=== PATIENT | male | born 1975 ===

== ENCOUNTER 2022-01-11 09:20 | Emergency (ER) | payer SELFPAY ==
[2022-01-11 10:02] VITALS: BP 140/81; PULSE 80; RESP 18; TEMP 36.4; O2SAT 96; BMI 33.9
[2022-01-11] MEDS: Ketorolac Tromethamine 30 MG/ML VIAL IM (10:11)
--- NOTE | 2022-01-11 10:11 | ED.BACK ---
HPI - Back Pain/Injury General Chief Complaint: Back Pain/Injury Stated Complaint: severe back pain Time Seen by Provider: 01/11/22 09:56 Source: patient Mode of arrival: ambulatory History of Present Illness HPI Narrative: 46-year-old male with no significant past medical history presenting to the ED complaining of low back pain x2 days with radiation down RLE. Admits woke up with the pain, denies injury, trauma, heavy lifting, falls. Admits to similar symptoms in the past. Had been taking ibuprofen without relief. Reports mild numbness to low back. Denies weakness, urinary incontinence, retention, fever MD elicited complaint: back pain Onset (ago): day(s) Related Data Previous Rx's Medication Instructions Recorded acetaminophen 500 mg tablet 500 mg PO Q6H PRN fever or pain 01/11/22 (Tylenol Extra Strength) #14 tabs cyclobenzaprine 10 mg tablet 10 mg PO TID PRN muscle spasm #10 01/11/22 tabs lidocaine 5 % topical patch 1 patch topical DAILY PRN pain #30 01/11/22 (Lidoderm) ea naproxen 500 mg tablet 500 mg PO BID PRN pain 10 days #20 01/11/22 tabs Allergies Allergy/AdvReac Type Severity Reaction Status Date / Time Penicillins [PENICILLINS] Allergy Unknown SWELLING Unverified 04/11/20 18:12 AND ITCHING Review of Systems Review of Systems: Constitutional: No Fever, No Chills ENT/Mouth: No Ear Pain, No Nasal Congestion, No sore throat, No Rhinorrhea, No Swallowing Difficulty Cardiovascular: No Chest Pain, No SOB Respiratory: No Cough, No Sputum, No Wheezing Gastrointestinal: No Nausea, No Vomiting, No Diarrhea, No Constipation, No Abdominal pain Genitourinary: No Dysuria, No Urinary Frequency, No Hematuria, No Urinary Incontinence/retention, No Urgency, No Flank Pain Musculoskeletal: + joint pain, No Myalgias, No Joint Swelling Skin: No Skin Lesions, No rash Neuro: No Weakness, No Numbness, No Paresthesias Yes all other systems are reviewed and are negative Neurologic: Denies Sensory deficit (Neuro) [facility] Past Medical History Attestation statement: The following information was validated with the patient. Social History Social History Advance Directives: No Advance Directives Information Provided: No Physical Exam Vital Signs: Vital Signs: Last Vital Signs Temp 97.6 F 01/11/22 10:02 Pulse 80 01/11/22 10:02 Resp 18 01/11/22 10:02 BP 140/81 H 01/11/22 10:02 Pulse Ox 96 01/11/22 10:02 O2 Del Method 01/11/22 10:02 BMI result Body Mass Index 33.9 Const: General: cooperative, healthy appearing and no acute distress Orientation/consciousness: patient oriented x3 Limitations: no limitations HEENT: Head: Yes normal to inspection and Yes atraumatic Ears: hearing grossly normal bilaterally General nose exam: Normal external nose present Face and sinus: Yes normal facial exam Eyes: General: appearance normal, both eyes and all related structures EOM: EOMs intact bilaterally Neck: Neck: Yes normal visual inspection, Yes no lymphadenopathy and Yes no meningeal signs Resp: Effort & Inspection: normal respiratory effort and no respiratory distress Cardio: Rate: regular rate Heart sounds: S1 normal heart sound present and S2 normal heart sound present GI: Inspection: Yes normal to inspection Palpation (GI): Soft to palpation and nontender : General: Yes no CVA tenderness Back/Spine/Pelvis: Other: No midline thoracic/lumbar spinous tenderness/step-off or deformity. + bilateral lumbar paraspinal and MSK tenderness to palpation. Bilateral buttock tenderness to palpation. Back: no CVA tenderness Skin: Rashes: no rashes Wounds: no wounds Neuro: Other: Strength intact throughout. No saddle anesthesia. Sensation intact to light touch. Neurovascular intact distally General: patient oriented x3, gait normal, tone normal, moves all extremities, no meningeal signs and no focal motor deficits Gait exam (Neuro): Normal gait present Motor exam (neuro): 5/5 motor strength present throughout Sensory Exam: No Sensory deficit (Neuro) Extrem: General: Yes normal to inspection MDM - Back Pain/Injury MDM Narrative Medical decision making narrative: 46-year-old male with no significant past medical history presenting to the ED complaining of low back pain x2 days. On exam vital signs stable, NAD/nontoxic appearing, physical exam above. No midline spinous tenderness throughout. No red flag symptoms, ambulating with steady gait. Concern for MSK pain/strain/muscle spasming and sciatica. Unlikely cauda equina, cord compression, or epidural abscess Plan: Symptomatic treatment Differential Diagnosis Differential diagnosis: Likely lumbar radiculopathy, sciatica and strain of lumbar region Medical Records Attestation: I reviewed the patient's medical records. Lab Data Attestation: I reviewed the patient's lab results. Discharge Plan Discharge Clinical Impression: Lumbar radiculopathy Patient Disposition: Home, Self-Care Instructions: Acute Low Back Pain (ED) Additional Instructions: Your pain is likely musculoskeletal Flexeril is a muscle relaxer, take at night as it makes you drowsy, do not drive, drink alcohol, or operate machinery while taking it Naproxen as an anti-inflammatory / pain medication, take with food Lidoderm patches are numbing patches, apply to painful area In addition take Tylenol at home If symptoms persist or worsen, pain becomes unbearable, you developed urinary retention or incontinence, or weakness return to the ED Prescriptions: New acetaminophen [Tylenol Extra Strength] 500 mg tablet 500 mg PO Q6H PRN (Reason: fever or pain) Qty: 14 0RF lidocaine [Lidoderm] 5 % adhesive patch,medicated 1 patch topical DAILY MDD remove after 12 hours PRN (Reason: pain) Qty: 30 0RF Rx Instructions: leave on most painful area for up to 12 hrs naproxen 500 mg tablet 500 mg PO BID PRN (Reason: pain) 10 Days Qty: 20 0RF cyclobenzaprine 10 mg tablet 10 mg PO TID PRN (Reason: muscle spasm) Qty: 10 0RF Referrals: Physician,None [Primary Care Provider] -
[2022-01-11] MEDS: Acetaminophen 325 MG TABLET 650 MG PO (10:12)
[2022-01-11] MEDS: Cyclobenzaprine HCl 10 MG TABLET PO (10:13)
== END 2022-01-11 10:51 | disposition home or self-care (01) ==
PROVIDERS: Emergency Provider Emergency Medicine Emergency Medical Services
DX: M54.16 Radiculopathy, lumbar region (principal); M54.50 Low back pain, unspecified; Z79.899 Other long term (current) drug therapy
CPT/HCPCS: 96372; 99283; 99284; J1885

== ENCOUNTER 2024-01-31 23:19 | Emergency (ER) | payer MEDICAID, SELFPAY ==
--- NOTE | 2024-01-31 | ECG_ITS ---
Test Reason : chest pain Blood Pressure : / mmHG Vent. Rate : 068 BPM Atrial Rate : 068 BPM P-R Int : 164 ms QRS Dur : 090 ms QT Int : 408 ms P-R-T Axes : 043 -05 -03 degrees QTc Int : 433 ms Normal sinus rhythm Normal ECG When compared to the previous EKG of No significant changes seen Referred By: Generic ED Physician Electronically Signed By:Cameron Miles
--- NOTE | ~2024-01-31 | CT_ITS ---
EXAMINATION: CT ABDOMEN AND PELVIS WITHOUT CONTRAST CLINICAL INFORMATION: Upper abdominal pain COMPARISON: None available. TECHNIQUE: Multidetector volumetric imaging was performed from the superior aspect of the liver through the pubic symphysis. Sagittal and coronal reformatted images were obtained on the technologist's workstation. This CT examination was performed using dose optimization techniques as appropriate, variously including the following: *Automated exposure control *Adjustment of mA and/or kV according to patient size (this includes techniques or standardized protocols for targeted exams where dose is matched to indication/reason for exam; i.e. extremities or head) *Use of iterative reconstruction technique DLP: 895 mGy-cm FINDINGS: OWNER: Nonspecific bowel pattern. LUNG BASES: Minor right base atelectasis. Nonenlarged heart. No pericardial effusion. LIVER, GALLBLADDER, AND BILIARY TREE: Enlarged heterogeneous liver with regions of low density. No focal hepatic lesion on noncontrast study. No biliary ductal dilatation is present. The gallbladder contains wall calcifications and/or calcified gallstones. Gallbladder is under distended with no wall thickening or obvious pericholecystic inflammatory changes. PANCREAS: Mildly heterogeneous, subcentimeter hypodensity questioned in the pancreatic head, 3:36 SPLEEN: Unremarkable. ADRENAL GLANDS: Unremarkable. KIDNEYS AND URETERS: The kidneys are normal in size, shape, and attenuation. No hydronephrosis, hydroureter, or calculi seen. Subcentimeter hyperdensity identified in the left upper pole, 7:61, possibly hemorrhagic cyst. No perinephric stranding. BLADDER: Unremarkable. GASTROINTESTINAL TRACT: Under distended stomach. Nonobstructive bowel pattern. Mild to moderate fecal retention. ABDOMINAL WALL: No significant hernia is appreciated. LYMPH NODES: No pathologic lymphadenopathy. Nonspecific inguinal lymph nodes. VASCULAR: Unremarkable. PELVIC VISCERA: Unremarkable. Phleboliths. OSSEOUS STRUCTURES: L5-S1 disc disease. CT/CT abdomen pelvis wo IV con IMPRESSION: Enlarged, heterogeneous liver, likely hepatic steatosis. Cholelithiasis. Subcentimeter pancreatic head lesion not excluded. Consider follow-up imaging with CT or MRI pancreatic protocol. Mild to moderate fecal retention. Fleischner guidelines were followed.
[2024-01-31 23:27] VITALS: BP 148/83; PULSE 72; RESP 22; TEMP 37; O2SAT 100; BMI 36.8
--- NOTE | 2024-01-31 23:51 | MHC.EDTECH ---
Patient ekg taken and was read by provider ,blood drawn and s4ent to lab .
[2024-01-31 23:52] LABS: MANUAL DIFF FLAG NO
[2024-01-31 23:53] LABS: Basophils Absolute Auto 0.1 X10*3/uL (0.0-0.2); Basophils Percent Auto 0.6 % (0-2); Eosinophils Absolute Auto 0.2 X10*3/uL (0.0-0.4); Eosinophils Percent Auto 1.9 % (0-4); Hematocrit 40.2 % (42.0-52.0); Hemoglobin 14.4 g/dl (14.0-18.0); Imm Gran Abs Auto 0.01 X10*3/uL (0.00-0.03); Imm Gran Pct Auto 0.1 % (0.0-0.4); Lymphocytes Absolute Auto 2.7 X10*3/uL (1.2-4.9); Lymphocytes Percent Auto 31.6 % (20-40); Mean Corpuscular HGB Conc 35.8 g/dl (31.0-36.0); Mean Corpuscular Hemoglobin 29.8 pg (27.0-33.0); Mean Corpuscular Volume 83.1 fL (80.0-98.0); Mean Platelet Volume 8.7 fL (9.4-12.4); Monocytes Absolute Auto 0.7 X10*3/uL (0.1-1.2); Monocytes Percent Auto 7.6 % (2-11); Neutrophils Percent Auto 58.2 % (45-73); Platelet Count 336 X10*3/uL (160-400); Red Blood Count 4.84 X10*6/uL (4.60-5.80); Red Cell Distribution Width 12.9 % (11.0-16.0); White Blood Count 8.6 X10*3/uL (4.8-10.8)
[2024-02-01 00:09] LABS: Alanine Aminotransferase 66 U/L (0-40); Alkaline Phosphatase 81 U/L (39-117); Anion Gap 16 (12-20); Aspartate Amino Transferase 27 U/L (5-37); Bilirubin Direct 0.1 mg/dL (0.0-0.5); Bilirubin Total 0.3 mg/dL (0.0-1.0); Blood Urea Nitrogen 14 mg/dL (9-16); Calcium 9.6 mg/dL (8.4-10.2); Carbon Dioxide 21 mmol/L (22-29); Chloride 107 mmol/L (96-108); Creatinine Clr Calc Pharmacy 127.5; Estimated Glomerular Filt Rate > 60; Glucose Random 131 mg/dL (60-115); Lipase 12 U/L (8-78); Potassium 3.8 mmol/L (3.3-5.1); Sodium 140 mmol/L (135-145); Total Protein 7.2 g/dL (6.5-8.0)
[2024-02-01 00:18] LABS: Troponin-I High Sensitivity < 2.7 ng/L (<3.5-35.0)
[2024-02-01 03:03] LABS: Troponin-I High Sensitivity < 2.7 ng/L (<3.5-35.0)
--- NOTE | 2024-02-01 04:08 | ED.ABDPAIN ---
HPI - Abdominal Pain General Chief Complaint: Abdominal Pain Stated Complaint: abd pain Time Seen by Provider: 02/01/24 02:59 Source: patient Mode of arrival: ambulatory Limitations: no limitations History of Present Illness ED Provider: claudia VAZQUEZ narrative: Patient with no known history of gallstones or gastritis been having epigastric pain off and on for last 3 - 4 months got worse since last night no nausea no vomiting no diarrhea pain is sharp in character radiating to the mid sternum Related Data Previous Rx's ?Medication ?Instructions ?Recorded acetaminophen 500 mg tablet 500 mg PO Q6H PRN fever or pain 01/11/22 (Tylenol Extra Strength) #14 tabs cyclobenzaprine 10 mg tablet 10 mg PO TID PRN muscle spasm #10 01/11/22 tabs lidocaine 5 % topical patch 1 patch topical DAILY PRN pain #30 01/11/22 (Lidoderm) ea naproxen 500 mg tablet 500 mg PO BID PRN pain 10 days #20 01/11/22 tabs Allergies Allergy/AdvReac Type Severity Reaction Status Date / Time Penicillins [PENICILLINS] Allergy Unknown SWELLING Verified 02/01/24 04:33 AND ITCHING Review of Systems Review of Systems Yes all other systems are reviewed and are negative [facility] Social History Social History Smoked in Last 30 Days: No Use of substances other than those prescribed or required for medical reasons: No Advance Directives: No Advance Directives Information Provided: Yes Do you have a plan to hurt others: No Plan Physical Exam ED Vital Signs: Vital Signs - 24 hr 01/31/24 23:27 02/01/24 05:13 02/01/24 06:41 Temperature 98.6 F 98.0 F 97.9 F Pulse Rate 72 75 77 Respiratory Rate 22 H 15 16 Blood Pressure 148/83 H 153/81 H 144/80 H Pulse Oximetry 100 95 96 Oxygen Delivery Method Room Air Room Air Room Air BMI result Body Mass Index 36.8 Appearance: Alert. Oriented X3. No acute distress. Eyes: No pallor or icterus ENT: Pharynx normal. Oral Mucosa moist Neck: Normal inspection. Neck supple. CVS: Normal heart rate and rhythm. Pulses normal. Respiratory: No respiratory distress. Equal air entry bilateral, no wheezing/rales/rhonchi Abdomen: Soft and tender epigastric area and right upper quadrant with guarding no rebound tenderness Bowel sounds are present, no mass palpable, no CVA tenderness Skin: Skin warm and dry. Normal skin color. Normal skin turgor. Extremities: No lower extremity edema. No calf tenderness Neuro: Oriented X 3. Medical Decision Making Lab Data 01/31/24 23:48 01/31/24 23:48 Labs: Lab Results 01/31/24 02/01/24 Range/Units 23:48 02:35 WBC 8.6 (4.8-10.8) X10*3/uL RBC 4.84 (4.60-5.80) X10*6/uL Hgb 14.4 (14.0-18.0) g/dl Hct 40.2 L (42.0-52.0) % MCV 83.1 (80.0-98.0) fL MCH 29.8 (27.0-33.0) pg MCHC 35.8 (31.0-36.0) g/dl RDW 12.9 (11.0-16.0) % Plt Count 336 (160-400) X10*3/uL MPV 8.7 L (9.4-12.4) fL Immature Gran % (Auto) 0.1 (0.0-0.4) % Neut % (Auto) 58.2 (45-73) % Lymph % (Auto) 31.6 (20-40) % [place] % (Auto) 7.6 (2-11) % Eos % (Auto) 1.9 (0-4) % Baso % (Auto) 0.6 (0-2) % Lymph # (Auto) 2.7 (1.2-4.9) X10*3/uL [place] # (Auto) 0.7 (0.1-1.2) X10*3/uL Eos # (Auto) 0.2 (0.0-0.4) X10*3/uL Baso # (Auto) 0.1 (0.0-0.2) X10*3/uL Abs Immat Gran (auto) 0.01 (0.00-0.03) X10*3/uL Absolute Neuts (auto) 5.0 (2.0-8.3) x10*3/uL Absolute Nucleated RBC 0.000 (0.0-0.012) X10*3/uL Nucleated RBC % (auto) 0.0 (0.0-0.2) /100WBC Sodium 140 (135-145) mmol/L Potassium 3.8 (3.3-5.1) mmol/L Chloride 107 (96-108) mmol/L Carbon Dioxide 21 L (22-29) mmol/L Anion Gap 16 (12-20) BUN 14 (9-16) mg/dL Creatinine 0.97 (0.5-1.4) mg/dL Estim Creat Clear Calc 127.5 Estimated GFR > 60 Random Glucose 131 H (60-115) mg/dL Calcium 9.6 (8.4-10.2) mg/dL Total Bilirubin 0.3 (0.0-1.0) mg/dL Direct Bilirubin 0.1 (0.0-0.5) mg/dL AST 27 (5-37) U/L ALT 66 H (0-40) U/L Alkaline Phosphatase 81 (39-117) U/L Troponin I High Sens < 2.7 < 2.7 (<3.5-35.0) ng/L Total Protein 7.2 (6.5-8.0) g/dL Albumin 4.0 (3.5-5.0) g/dL Lipase 12 (8-78) U/L Medications Administered Discontinued Medications Generic Name Dose Route Start Last Admin Trade Name Freq PRN Reason Stop Dose Admin Al Hydroxide/Mg Hydroxide 30 ml 02/01/24 04:14 02/01/24 04:34 Magnesium Hydrox/Alum Hydrox 30 Ml Oral.Susp PO 02/01/24 04:15 30 ml ONCE ONE Administration Famotidine 20 mg 02/01/24 04:14 02/01/24 04:33 Famotidine/Pf 20 Mg/2 Ml Vial IVPUSH 02/01/24 04:15 20 mg ONCE ONE Administration Sodium Chloride 1,000 mls @ 999 mls/hr 02/01/24 04:14 02/01/24 04:33 Ns IV 02/01/24 05:14 999 mls/hr .Q1H1M ONE Administration Discharge Plan Discharge Clinical Impression: Abdominal pain Patient Disposition: Still a Patient Prescriptions: No Action acetaminophen [Tylenol Extra Strength] 500 mg tablet 500 mg PO Q6H PRN (Reason: fever or pain) Qty: 14 0RF lidocaine [Lidoderm] 5 % adhesive patch,medicated 1 patch topical DAILY MDD remove after 12 hours PRN (Reason: pain) Qty: 30 0RF Rx Instructions: leave on most painful area for up to 12 hrs naproxen 500 mg tablet 500 mg PO BID PRN (Reason: pain) 10 Days Qty: 20 0RF cyclobenzaprine 10 mg tablet 10 mg PO TID PRN (Reason: muscle spasm) Qty: 10 0RF Print Language: Syriac
[2024-02-01] MEDS: Famotidine/PF 20 MG/2 ML VIAL IVPUSH (04:33)
[2024-02-01] MEDS: 0.9 % Sodium Chloride 1,000 ML 999 ML IV (04:33)
[2024-02-01] MEDS: Magnesium Hydrox/Alum Hydrox 30 ML ORAL.SUSP PO (04:34)
--- NOTE | 2024-02-01 05:07 | PC.NURSE ---
this rn assumed care of pt, pt a&ox4, respirations even and unlabored. pt reporting onset up mid epigastric burning and pain. pt reports he has not experienced any nausea, vomiting or diarrhea. 20G placed in left ac, pt medicated per sep.
[2024-02-01 05:13] VITALS: BP 153/81; PULSE 75; RESP 15; TEMP 36.7; O2SAT 95
[2024-02-01 06:41] VITALS: BP 144/80; PULSE 77; RESP 16; TEMP 36.6; O2SAT 96
[2024-02-01 09:02] VITALS: BP 148/88; PULSE 73; RESP 18; TEMP 36.6; O2SAT 96
--- NOTE | 2024-02-01 09:25 | PC.NURSE ---
Report taken from Antonia GARCIA assumed care of pt at this time. Pt resting on stretcher skin pwd respirations even unlabored. NAD. Awaiting results and MD reeval, aware of plan of care.
--- NOTE | 2024-02-01 10:42 | PC.NURSE ---
Pt continues to rest comfortably, NAD. CT results received, awaiting MD reeval.
[2024-02-01 11:38] VITALS: BP 143/87; PULSE 73; RESP 18; TEMP 36.7; O2SAT 97
== END 2024-02-01 11:39 | disposition home or self-care (01) ==
PROVIDERS: Emergency Provider Internal Medicine
DX: R07.9 Chest pain, unspecified (principal); R10.13 Epigastric pain
CPT/HCPCS: 36415; 74176; 80048; 80076; 83690; 84484; 85025; 93005; 96361; 96374; 99284; 99285

== ENCOUNTER → 2024-01-31 23:34 | Outpatient (BNV) | payer MEDICAID, SELFPAY | PROVIDERS: Emergency Provider Internal Medicine; Visit Provider Internal Medicine Cardiovascular Disease | DX: R07.9 Chest pain, unspecified (principal) | CPT/HCPCS: 93010 ==

== ENCOUNTER 2024-02-16 15:00 | Outpatient (AMB) | payer OTHER, MEDICAID, SELFPAY ==
--- NOTE | 2024-02-16 15:00 | A.OFFVIS_ITS ---
Vital Signs 02/16/24 15:05 Height 6 ft Weight 268 lb BMI 36.3 Intake Visit Reasons: Gallbladder Intake Note: This patient [place] [facility] [place] colic. Patient c/o; reports no nausea or vomiting, reports constipation, reports bloating. 02/01/2024: Abd/pelvis CT [employer] Required: No Accompanied by: Spouse Allergies Penicillins [PENICILLINS] Allergy (Unknown, Verified 02/16/24 15:08) SWELLING AND ITCHING Medication List - Last Reconciled 02/16/24 by Raleigh Suresh MD acetaminophen (Tylenol Extra Strength) 500 mg PO Q6H PRN cyclobenzaprine 10 mg PO TID PRN lidocaine 5% (Lidoderm) 1 patch topical DAILY PRN MDD remove after 12 hours naproxen 500 mg PO BID PRN 10 days pantoprazole (Protonix) 40 mg PO DAILY HPI HPI Gallbladder: Details: 48-year-old male referred for gallstones. He went to the ER last 02/01/2024 for an episode of epigastric pain. State that may be this also was a little bit on the right upper quadrant He had a CAT scan showing gallstones and was referred to me. He says that he may have had another similar episode about 4 months ago. His CAT scan at that time showed what may be a subcentimeter mass in the pancreatic head. An MRI was recommended by the radiologist He says he has had no further episodes of epigastric pain. He says he was given Prilosec which he says seemed to be working. [facility] [place] Medical History (Updated 02/16/24 @ 15:16 by Raleigh Suresh MD) Gallstones History of retained foreign body fully removed (~1989) Pancreatic mass Family History Other Family history unknown Review of Systems Const Denies chills and Denies fever(s) Card Denies chest pain, Denies dyspnea and Denies dyspnea on exertion Resp Denies cough, Denies dyspnea and Denies dyspnea on exertion GI Denies hematochezia and Denies change in bowel habits Denies hematuria and Denies difficulty urinating Musc Denies back pain and Denies limited range of motion Neuro Denies focal weakness and Denies convulsions Psych Denies depression and Denies mood swings Physical Exam Vital Signs: BMI result Body Mass Index 36.3 Const General: comfortable and no acute distress Orientation/consciousness: patient oriented x3 Neck Neck: Yes no lymphadenopathy Resp Auscultation: clear to auscultation bilaterally Cardio Rhythm: regular rhythm GI Palpation (GI): Soft to palpation, nontender and no guarding Neuro General: patient oriented x3 Assessment & Plan Assessment & Plan (1) Gallstones: Code(s): K80.20 - Calculus of gallbladder without cholecystitis without obstruction Category: Medical Plan: He went to the ER for epigastric pain 02/01/2024 and was noted to have gallstones on CT scan. The impression then was he may have had a biliary colic. I therefore explained to him the option of proceeding with cholecystectomy. I discussed the technique of laparoscopic cholecystectomy. I reviewed the risks including but not limited to bleeding, infections, possible conversion to open, injury to other organs including the liver, the GI tract in the bile duct, as well as the benefits and alternatives He says that at this time he feels that his episode was mild and this does not happen often. He would like to hold off on cholecystectomy for now. He says that he would like to observe this himself and says he will call the office or come back if he wants to proceed. He also has a subcentimeter nodule in the pancreatic head so I am going to order for an MRI as recommended by the radiologist. (2) Pancreatic mass: Code(s): K86.89 - Other specified diseases of pancreas Category: Medical Plan: There was a question of a subcentimeter nodule on CT scan in the pancreatic head. I am going to order for an MRCP as recommended. I will see him in the office to review this. Orders: Orders MR MRCP Today K86.89 - Other specified diseases of pancreas Coding Level of Care Code New Pt Level 3 (21448) Diagnoses Gallstones K80.20 Pancreatic mass K86.89
[2024-02-16 15:05] VITALS: BMI 36.3
== END 2024-02-16 15:35 | disposition home or self-care (01) ==
PROVIDERS: PCP Internal Medicine; Visit Provider Surgery
DX: K80.20 Calculus of gallbladder without cholecystitis without obstruction (principal); K86.89 Other specified diseases of pancreas
CPT/HCPCS: 99203

== ENCOUNTER → 2024-02-16 15:00 | Outpatient (BNVA) | payer OTHER, SELFPAY | PROVIDERS: PCP Internal Medicine; Visit Provider Surgery | DX: K80.20 Calculus of gallbladder without cholecystitis without obstruction (principal); K86.89 Other specified diseases of pancreas | CPT/HCPCS: 99202 ==

== ENCOUNTER 2024-02-21 04:45 | Inpatient (IN) | payer OTHER, SELFPAY ==
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
--- NOTE | ~2024-02-21 | US_ITS ---
EXAMINATION: US ABDOMEN LIMITED CLINICAL INFORMATION: Right upper quadrant pain. COMPARISON: CT abdomen/pelvis 02/01/2024 TECHNIQUE: Limited imaging of the right upper quadrant abdominal viscera. FINDINGS: GALLBLADDER: The gallbladder is physiologically distended with stones and sludge. Gallbladder wall thickening up to 4 mm. No pericholecystic fluid. Positive sonographic Ryan sign. COMMON BILE DUCT: Normal in caliber measuring 0.5 cm in diameter. FREE FLUID: None. US/US abdomen limited IMPRESSION: Cholelithiasis. Borderline gallbladder wall thickening. Positive sonographic Ryan's sign. Findings may represent acute cholecystitis. Advise clinical correlation.
--- NOTE | ~2024-02-21 | MR_ITS ---
EXAMINATION: MR ABDOMEN WITHOUT CONTRAST CLINICAL INFORMATION: Right upper quadrant pain. COMPARISON: CT abdomen/pelvis 02/01/2024 TECHNIQUE: MR abdomen is performed without gadolinium contrast. Heavily T2 weighted MRCP sequences were also obtained. FINDINGS: LUNG BASES: No pleural or pericardial effusion. LIVER, GALLBLADDER, AND BILIARY TREE: The liver is enlarged and measures 20.8 cm and sagittal dimension. Hepatic steatosis. No focal hepatic lesion.. The common duct measures 5 cm at the jesu hepatis. No intrahepatic biliary ductal dilatation. The cystic duct is of normal caliber. No intraductal filling defects. There is gallbladder distention and wall thickening with gallstones. PANCREAS: Normal contour. No ductal dilatation. No peripancreatic stranding. SPLEEN: Not enlarged. ADRENAL GLANDS: No adrenal mass. KIDNEYS AND URETERS: The kidneys are normal in size and shape. No hydronephrosis. No perinephric stranding. GASTROINTESTINAL TRACT: No bowel obstruction. No ascites or fluid collection. VASCULAR: Normal caliber abdominal aorta. MR/MR MRCP IMPRESSION: No discrete pancreatic lesion seen. Evaluation limited by the lack of intravenous contrast. Cholelithiasis. Gallbladder wall thickening and distention. This may represent acute cholecystitis. Hepatomegaly and hepatic steatosis.
[2024-02-21 04:49] VITALS: BP 182/98; PULSE 77; RESP 22; TEMP 36.6; O2SAT 96; BMI 37.3
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
[2024-02-21] MEDS: Ketorolac Tromethamine 15 MG/ML VIAL IVPUSH (05:03)
[2024-02-21] MEDS: ondansetron HCL 4 MG/2 ML VIAL IVPUSH ×2 (05:03→16:43)
[2024-02-21] MEDS: Morphine Sulfate 4 MG/ML CARTRIDGE IVPUSH ×2 (05:04→05:27)
[2024-02-21 05:12] LABS: Basophils Absolute Auto 0.1 X10*3/uL (0.0-0.2); Basophils Percent Auto 0.7 % (0-2); Eosinophils Absolute Auto 0.2 X10*3/uL (0.0-0.4); Eosinophils Percent Auto 2.4 % (0-4); Hematocrit 39.9 % (42.0-52.0); Hemoglobin 13.9 g/dl (14.0-18.0); Imm Gran Abs Auto 0.02 X10*3/uL (0.00-0.03); Imm Gran Pct Auto 0.3 % (0.0-0.4); Lymphocytes Absolute Auto 2.5 X10*3/uL (1.2-4.9); Lymphocytes Percent Auto 37.4 % (20-40); MANUAL DIFF FLAG NO; Mean Corpuscular HGB Conc 34.8 g/dl (31.0-36.0); Mean Corpuscular Hemoglobin 29.2 pg (27.0-33.0); Mean Corpuscular Volume 83.8 fL (80.0-98.0); Mean Platelet Volume 8.7 fL (9.4-12.4); Monocytes Absolute Auto 0.7 X10*3/uL (0.1-1.2); Monocytes Percent Auto 10.2 % (2-11); Neutrophils Absolute Auto 3.3 x10*3/uL (2.0-8.3); Platelet Count 356 X10*3/uL (160-400); Red Blood Count 4.76 X10*6/uL (4.60-5.80); Red Cell Distribution Width 12.9 % (11.0-16.0); White Blood Count 6.8 X10*3/uL (4.8-10.8)
[2024-02-21 05:18] LABS: INTERNATIONAL NORM RATIO 0.9 (0.9-1.1); Prothrombin Time 10.8 SEC (11.1-13.3)
[2024-02-21 05:21] LABS: Partial Thromboplastin Time 29.8 SEC (26.0-36.8)
[2024-02-21 05:25] LABS: Alanine Aminotransferase 49 U/L (0-40); Albumin Level 4.2 g/dL (3.5-5.0); Alkaline Phosphatase 85 U/L (39-117); Anion Gap 16 (12-20); Aspartate Amino Transferase 24 U/L (5-37); Bilirubin Total 0.3 mg/dL (0.0-1.0); Blood Urea Nitrogen 16 mg/dL (9-16); Calcium 9.8 mg/dL (8.4-10.2); Carbon Dioxide 24 mmol/L (22-29); Chloride 106 mmol/L (96-108); Creatinine Clr Calc Pharmacy 108.3; Estimated Glomerular Filt Rate > 60; Glucose Random 137 mg/dL (60-115); Lipase 18 U/L (8-78); Potassium 3.9 mmol/L (3.3-5.1); Sodium 142 mmol/L (135-145); Total Protein 7.3 g/dL (6.5-8.0)
[2024-02-21] MEDS: Lactated Ringers 1,000 ML 999 ML IV (05:27)
[2024-02-21 06:00] VITALS: BP 153/77; PULSE 65; RESP 17; TEMP 36.6; O2SAT 96
[2024-02-21] MEDS: HYDROmorphone HCl 1 MG/ML SYRINGE IVPUSH ×2 (06:01→07:49)
--- NOTE | 2024-02-21 07:03 | PC.NURSE ---
report received from previous RN, patient resting on stretcher, states he feels like the medicine just made him high but he still feels the pain, lights dimmed and patient offered blanket for comfort. patient placed back on monitoring coordinator and continuous pulse ox. waiting for US results and disposition.
--- NOTE | 2024-02-21 07:33 | PC.NURSE ---
MRI screening completed at this time, faxed to MRI department, MD Suresh at bedside at this time
--- NOTE | 2024-02-21 07:39 | PC.NURSE ---
per OK for patient to go to MRI off monitor
[2024-02-21] MEDS: Metoclopramide HCl 10 MG/2 ML VIAL IVPUSH (07:43)
[2024-02-21] MEDS: diphenhydrAMINE HCL 50 MG/ML VIAL IVPUSH (07:47)
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
--- NOTE | 2024-02-21 07:58 | PC.NURSE ---
patient medicated per SEP, portable xray completed. requesting ice chips at this time, ok per MD matamoros. patient adjusted in bed for comfort, lights dimmed, awaiting MRI at this time
--- NOTE | 2024-02-21 08:53 | PHA.MEDREC ---
Pharmacy Consult ? Medication Reconciliation Pharmacy has completed the medication reconciliation. Patient was sleeping so spoke to girlfriend Lilian at bedside. She said pt is done with the pantoprazole prescription and he's taking multivitamin daily and tylenol 500 mg as needed for pain.
--- NOTE | 2024-02-21 09:12 | PC.NURSE ---
patient at MRI at this time
[2024-02-21] MEDS: 0.9 % Sodium Chloride Flush 3 ML SYRINGE IVFLUSH (09:50)
[2024-02-21] MEDS: Pantoprazole Sodium 40 MG/10 ML VIAL IVPUSH (09:51)
[2024-02-21] MEDS: Lactated Ringers 1,000 ML 100 ML IVCONT ×2 (09:51→20:42)
--- NOTE | 2024-02-21 10:44 | PC.NURSE ---
report called to Jeanie GARCIA in overflow, patient being transported at this time
--- NOTE | 2024-02-21 13:47 | PC.NURSE ---
Per Dr. Suresh patient okay to have clear liquids until midnight tonight
--- NOTE | 2024-02-21 14:02 | PM.EVENT ---
Event Note Date of Service: 02/21/24 Event Note: Feels better Has been sleeping according to the Stable vital signs Abdomen soft and benign He wants to proceed with cholecystectomy I have put him on the schedule for tomorrow for laparoscopic cholecystectomy possible open cholecystectomy I reviewed with him the technique of this procedure as well as the risks, benefits, and alternatives His MRCP does not reveal any obvious pancreatic head mass Time Spent With Patient Time: Total time managing care of this patient today ____ minutes.
[2024-02-21] MEDS: Morphine Sulfate 4 MG/ML CARTRIDGE 3 MG IVPUSH ×2 (15:56→20:38)
--- NOTE | 2024-02-21 16:19 | PC.NURSE ---
Medicated per mar for complaints of abdominal pain, tolerating clear liquids well , at bedside
[2024-02-21 18:25] VITALS: BP 175/97; PULSE 54; RESP 16; TEMP 37.1; O2SAT 96
--- NOTE | 2024-02-21 18:29 | PC.NURSE ---
Medicated with good effect for complaints of nausea. at bedside. Patient reports pain is much improved
[2024-02-21 20:50] VITALS: BP 144/86; PULSE 59
[2024-02-21 21:36] VITALS: BP 167/88; PULSE 55; RESP 17; TEMP 36.3; O2SAT 96
[2024-02-21 22:29] LABS: Appearance Urine Clear; Color Urine Yellow; Glucose Urine UA Negative (Negative); Leukocyte Esterase Urine Trace (Negative); Nitrite Urine Negative (Negative); PH 5.5 (5.0-9.0); UMIC TRIGGER UACC YES; Urine Blood Negative (Negative); Urine Ketones Negative (Negative); Urine Protein Negative (Neg-Trace)
[2024-02-21 22:42] LABS: Bacteria Urine None Seen (None Seen); Hyaline Casts Urine 0-2 /LPF (0-2); UACC Culture Trigger YES
[2024-02-21 22:43] LABS: RBC Urine 0-2 /HPF (0-2)
[2024-02-22] VITALS (12 sets, daily range): BP systolic 145–187; BP diastolic 66–97; PULSE 50–82; RESP 11–18; TEMP 36.1–37; O2SAT 94–98
[2024-02-22] MEDS: Lactated Ringers 1,000 ML 100 ML IVCONT ×3 (06:11→23:59)
[2024-02-22 07:27] LABS: Mean Corpuscular HGB Conc 35.1 g/dl (31.0-36.0); Mean Corpuscular Hemoglobin 29.6 pg (27.0-33.0); Mean Corpuscular Volume 84.3 fL (80.0-98.0); Mean Platelet Volume 8.7 fL (9.4-12.4); Platelet Count 311 X10*3/uL (160-400); Red Blood Count 4.39 X10*6/uL (4.60-5.80); Red Cell Distribution Width 12.9 % (11.0-16.0); White Blood Count 7.8 X10*3/uL (4.8-10.8)
[2024-02-22 07:40] LABS: Alanine Aminotransferase 45 U/L (0-40); Albumin Level 3.6 g/dL (3.5-5.0); Alkaline Phosphatase 66 U/L (39-117); Anion Gap 12 (12-20); Aspartate Amino Transferase 24 U/L (5-37); Bilirubin Total 0.6 mg/dL (0.0-1.0); Blood Urea Nitrogen 11 mg/dL (9-16); Calcium 9.4 mg/dL (8.4-10.2); Carbon Dioxide 28 mmol/L (22-29); Chloride 106 mmol/L (96-108); Creatinine Clr Calc Pharmacy 125.8; Estimated Glomerular Filt Rate > 60; Glucose Random 111 mg/dL (60-115); Potassium 4.5 mmol/L (3.3-5.1); Sodium 141 mmol/L (135-145); Total Protein 6.4 g/dL (6.5-8.0)
[2024-02-22] MEDS: Acetaminophen 325 MG TABLET 650 MG PO ×2 (08:09→20:02)
[2024-02-22] MEDS: Pantoprazole Sodium 40 MG/10 ML VIAL IVPUSH (08:09)
--- NOTE | 2024-02-22 08:15 | PM.PNGS ---
Subjective Subjective Date of Service: 02/22/24 Interval history: Feels well this morning Denies significant pain No nausea or vomiting Physical Exam Vital Signs: Vital Signs: Last Vital Signs Temp 97.9 F 02/22/24 07:00 Pulse 65 02/22/24 07:00 Resp 16 02/22/24 07:00 BP 145/81 H 02/22/24 07:00 Pulse Ox 95 02/22/24 07:00 O2 Del Method Room Air 02/22/24 07:00 BMI result Body Mass Index 37.3 Const: General: comfortable and no acute distress Resp: Effort & Inspection: normal respiratory effort Cardio: Rate: regular rate GI: Palpation (GI): Soft to palpation, not firm, nontender and no guarding Objective Data Active Medications Acetaminophen (Acetaminophen 325 Mg Tablet) 650 mg PO Q6H PRN PRN Reason: Pain, Mild (Pain Scale 1-3), fever or headache Last Admin: 02/22/24 08:09 Dose: 650 mg Documented By: ROMANA Heparin Sodium (Porcine) (Heparin Sodium,Porcine 5,000 Unit/Ml Vial) 5,000 unit SUBCUT Q8H [facility] Lactated Ringer's (Lr) 1,000 mls @ 100 mls/hr IVCONT .Q10H [facility] Last Admin: 02/22/24 06:11 Dose: 100 mls/hr Documented By: BLADIMIR Metoclopramide HCl (Metoclopramide Hcl 10 Mg/2 Ml Vial) 10 mg IVPUSH Q6H PRN PRN Reason: Nausea and Vomiting Morphine Sulfate (Morphine Sulfate 4 Mg/Ml Cartridge) 3 mg IVPUSH Q3H PRN; Protocol PRN Reason: pain, severe Last Admin: 02/21/24 20:38 Dose: 3 mg Documented By: JOSUÉ Ondansetron HCl (Ondansetron Hcl 4 Mg/2 Ml Vial) 4 mg IVPUSH Q6H PRN PRN Reason: nausea Last Admin: 02/21/24 16:43 Dose: 4 mg Documented By: SAMUEL Pantoprazole Sodium (Pantoprazole Sodium 40 Mg/10 Ml Vial) 40 mg IVPUSH DAILY [facility] Last Admin: 02/22/24 08:09 Dose: 40 mg Documented By: ROMANA Sodium Chloride (0.9 % Sodium Chloride Flush 3 Ml Syringe) 3 ml IVFLUSH QSHIFT [facility] Last Admin: 02/22/24 07:10 Dose: Not Given Documented By: ROMANA Non-Admin Reason: IV Running Labs 02/22/24 07:06 02/22/24 07:06 Labs: Laboratory Results - last 24 hr 02/21/24 02/22/24 22:15 07:06 MCV 84.3 MCH 29.6 MCHC 35.1 RDW 12.9 Plt Count 311 MPV 8.7 L Absolute Nucleated RBC 0.000 Nucleated RBC % (auto) 0.0 Anion Gap 12 Estim Creat Clear Calc 125.8 Estimated GFR > 60 Random Glucose 111 Calcium 9.4 Total Bilirubin 0.6 AST 24 ALT 45 H Alkaline Phosphatase 66 Total Protein 6.4 L Albumin 3.6 Urine Color Yellow Urine Appearance Clear Urine pH 5.5 Ur Specific [place] 1.020 Urine Protein Negative Urine Glucose (UA) Negative Urine Ketones Negative Urine Blood Negative Urine Nitrite Negative Ur Leukocyte Esterase Trace H Urine RBC 0-2 Urine WBC 6-10 H Ur Squamous Epith Cells 3-5 Urine Bacteria None Seen Hyaline Casts 0-2 Blood Type O Positive Antibody Screen NEGATIVE Microbiology Microbiology Results: Microbiology 02/21/24 22:45 Urine Culture - Preliminary Urine clean catch - Clean Catch Midstream Culture too young to evaluate. Procedures Date of Service Date of Service: 02/22/24 Progress Note: A&P Assessment and plan (1) Biliary colic: Status: Acute Assessment and Plan: Has had multiple episodes He wants to proceed with cholecystectomy He understands the technique of the planned procedure as well as the risks, benefits, and alternatives LFTs within normal His was with him at bedside Time Spent With Patient Time: Total time managing care of this patient today ____ minutes. Quality Stroke Does the patient have a stroke diagnosis?: No VTE Prior VTE?: No VTE Risk Level:: Medical - moderate - high VTE Device Contraindication: N/A - Device Ordered VTE Drug Contraindication: N/A - Med Ordered
--- NOTE | 2024-02-22 11:13 | HO.ANESPROP2 ---
HPI - Anesthesia Eval Consult details Narrative: for lap. cholecystectomy PMFSH Active Problems Active Problems: All Active Problems History of exploratory laparotomy (Acute) Mass of head of pancreas (Acute) Biliary colic (Acute) Abdominal pain, acute, right upper quadrant (Acute) Gallstones (Acute) Pancreatic mass (Acute) Past Medical History Medical History (Updated 02/21/24 @ 07:20 by Edilberto Quiros MD) Gallstones History of retained foreign body fully removed (~1989) Pancreatic mass Family History Family History Other Family history unknown Family history of problems with anesthesia: No Surgical History Surgical History (Updated 02/21/24 @ 07:53 by Raleigh Suresh MD) History of exploratory laparotomy History of Problems with Anesthesia: No Social History Social History Household Members: None Housing: Apartment Do you presently have visiting nurse or other home services: No Patient Tobacco Use Status: Current everyday Tobacco user Tobacco use type: Cigarette Cigarette Packs Per Day: 1 Cigarettes Per Day: 20.0 e-Cigarette/Vaping Use: Currently Using Meds Allergies Allergy/AdvReac Type Severity Reaction Status Date / Time Penicillins [PENICILLINS] Allergy Unknown SWELLING Verified 02/21/24 04:52 AND ITCHING Active Medications: Current Medications Acetaminophen (Acetaminophen 325 Mg Tablet) 650 mg PO Q6H PRN PRN Reason: Pain, Mild (Pain Scale 1-3), fever or headache Last Admin: 02/22/24 08:09 Dose: 650 mg Heparin Sodium (Porcine) (Heparin Sodium,Porcine 5,000 Unit/Ml Vial) 5,000 unit SUBCUT Q8H ANIYA Lactated Ringer's (Lr) 1,000 mls @ 100 mls/hr IVCONT .Q10H ANIYA Last Admin: 02/22/24 06:11 Dose: 100 mls/hr Metoclopramide HCl (Metoclopramide Hcl 10 Mg/2 Ml Vial) 10 mg IVPUSH Q6H PRN PRN Reason: Nausea and Vomiting Morphine Sulfate (Morphine Sulfate 4 Mg/Ml Cartridge) 3 mg IVPUSH Q3H PRN; Protocol PRN Reason: pain, severe Last Admin: 02/21/24 20:38 Dose: 3 mg Ondansetron HCl (Ondansetron Hcl 4 Mg/2 Ml Vial) 4 mg IVPUSH Q6H PRN PRN Reason: nausea Last Admin: 02/21/24 16:43 Dose: 4 mg Pantoprazole Sodium (Pantoprazole Sodium 40 Mg/10 Ml Vial) 40 mg IVPUSH DAILY [facility] Last Admin: 02/22/24 08:09 Dose: 40 mg Sodium Chloride (0.9 % Sodium Chloride Flush 3 Ml Syringe) 3 ml IVFLUSH QSHIFT [facility] Last Admin: 02/22/24 07:10 Dose: Not Given Home Medications ?Medication ?Instructions ?Recorded ?Confirmed ?Last Taken ?Type acetaminophen 500 mg tablet 500 mg PO DAILY PRN Pain 02/21/24 02/21/24 Unknown History (Tylenol Extra Strength) multivitamin 1 tab PO DAILY 02/21/24 02/21/24 Unknown History Exam Height,Weight and Vital Signs: Height 6 ft Weight 124.738 kg Last Vital Signs Temp 98.4 F 02/22/24 09:58 Pulse 68 02/22/24 09:58 Resp 18 02/22/24 09:58 BP 165/78 H 02/22/24 09:58 Pulse Ox 98 02/22/24 09:58 O2 Del Method Room Air 02/22/24 09:58 Pertinent Lab Results Pertinent Lab Results: Laboratory Tests 02/21/24 02/21/24 02/22/24 05:08 22:15 07:06 WBC 6.8 7.8 RBC 4.76 4.39 L Hgb 13.9 L 13.0 L Hct 39.9 L 37.0 L MCV 83.8 84.3 MCH 29.2 29.6 MCHC 34.8 35.1 RDW 12.9 12.9 Plt Count 356 311 MPV 8.7 L 8.7 L Immature Gran % (Auto) 0.3 Neut % (Auto) 49.0 Lymph % (Auto) 37.4 [place] % (Auto) 10.2 Eos % (Auto) 2.4 Baso % (Auto) 0.7 Lymph # (Auto) 2.5 [place] # (Auto) 0.7 Eos # (Auto) 0.2 Baso # (Auto) 0.1 Abs Immat Gran (auto) 0.02 Absolute Neuts (auto) 3.3 Absolute Nucleated RBC 0.000 0.000 Nucleated RBC % (auto) 0.0 0.0 PT 10.8 L INR 0.9 APTT 29.8 Sodium 142 141 Potassium 3.9 4.5 Chloride 106 106 Carbon Dioxide 24 28 Anion Gap 16 12 BUN 16 11 Creatinine 1.15 0.99 Estim Creat Clear Calc 108.3 125.8 Estimated GFR > 60 > 60 Random Glucose 137 H 111 Calcium 9.8 9.4 Total Bilirubin 0.3 0.6 AST 24 24 ALT 49 H 45 H Alkaline Phosphatase 85 66 Total Protein 7.3 6.4 L Albumin 4.2 3.6 Lipase 18 Urine Color Yellow Urine Appearance Clear Urine pH 5.5 Ur Specific [place] 1.020 Urine Protein Negative Urine Glucose (UA) Negative Urine Ketones Negative Urine Blood Negative Urine Nitrite Negative Ur Leukocyte Esterase Trace H Urine RBC 0-2 Urine WBC 6-10 H Ur Squamous Epith Cells 3-5 Urine Bacteria None Seen Hyaline Casts 0-2 Blood Type O Positive Antibody Screen NEGATIVE Airway Mallampati Class: II (full neck, anticipate diff airway and diff mask airway) TM Dist: <=3cm Neck ROM: Full Loose/Missing/Broken Teeth: Yes and Upper Heart: ok Lungs: ok Assessment and Plan Assessment Anesthesia Assessment: Anesthesia Plan Discussed and Chart Reviewed Final Anesthetic Review Family History of Problems with Anesthesia: No History of Problems with Anesthesia: No NPO: Yes ASA Class: II and III Final Preanesthetic Review: No Changes in Pt Med Stat, Meds/Allgs Chart Reviewed, Consent Obtained/Reviewed and Anes Risks/Benef Reviewed Patient Risk: Intermediate Procedure Risk: Intermediate Anesthetic Plan Anesthetic Plan: GA and Agree w/ Assess. and Plan Disposition: Standard PACU
--- NOTE | 2024-02-22 12:15 | MHC.CM.PN ---
PT IS DOWN FOR SURGERY, CM WILL RE-APPROACH FOR INTAKE ASSESSMENT WHEN PT AVAILABLE.
--- NOTE | 2024-02-22 13:06 | P.OP_ITS ---
Operative Note Operative Note Date of Service: 02/22/24 Narrative: Preop diagnosis: Gallstones, with symptoms Postop diagnosis: Gallstones, with chronic cholecystitis; also with densely adherent bowel loops in the area of the umbilicus and on the inferior aspect of the liver; extensive adhesions Procedure: Laparoscopic cholecystectomy, with extra port placement on the left paraumbilical area Surgeon: Raleigh Suresh MD floral assistant: EVAN Ferreira The patient is a 48-year-old male who was admitted via the ER yesterday because of right upper quadrant and epigastric pain. He did have gallstones. He has had his ER visits as well for this same problem. In view of his severe pain was admitted and he wanted to proceed with cholecystectomy. He understood the technique of the planned procedure as well as the risks, benefits, and alternatives. He was brought to the operating room. He was placed supine under general anesthesia via endotracheal tube. The abdomen was prepped and draped in usual sterile fashion. A surgical time-out was done. The patient received Cefotan 2 g IV preoperatively I made a short supraumbilical incision using blade 15. He did have a long laparotomy incision in this area. This was carried down through the full- thickness of the skin subcutaneous fat with the fascia was incised. Since I expected adhesions, I proceeded to examine the underside of the fascia carefully prior to inserting any port site. I noticed immediately that there was note of a small bowel loop surrounding this incision in the area just above the umbilicus. I could not leave any significant clearance around this and I feel that it was too risky to try to bluntly dissect the adhesions around the area to achieve clearance for the port. I decided therefore to place my initial port in the gastric area. I made an incision in the epigastric area just below the subcostal margin. I carried this down through the full-thickness of the skin and subcutaneous fat. I incised through the fascia. Careful blunt dissection, as able to enter the peritoneal cavity. I inserted the Daniels port through this incision. We examined laparoscopically. The very densely adherent small bowel loops around the umbilicus were seen and it was impossible to carefully released this in view of the dense adhesions. I therefore needed to make a separate incision on the left paraumbilical area inserted a 5/12 mm port with laparoscopic visualization. This was just lateral to the densely adherent bowel loops. We moved the 10 mm 30 degree scope into this left sided port. With laparoscopic visualization, I proceeded to then insert 2 5 mm ports in the epigastric area below the subcostal margin along the anterior axillary line and the midclavicular line. Graspers were placed through this to working ports. The patient was placed in head up and [id number] position. The fundus of the gallbladder was seen. We are able to apply a grasper to this and this was used to retract the gallbladder cephalad. There was note of a lot of omentum adherent to the anterior wall of the gallbladder. We had to do careful blunt dissection with the [place] dissector as well as the tip of the suction teacher of the visually impaired. Carefully separate all the omentum off of the anterior wall of the gallbladder. Eventually, it appeared that we had good visualization of the anterior wall. However, there was note of bowel loops stuck to this medially. I had to carefully separate this from the rest of the gallbladder wall with blunt dissection during the tip of the excision I irrigated. We had to proceed slowly to avoid any injury to the bowel loops. Eventually was able t o completely separate this bowel loop off of the entire gallbladder. I was able to therefore apply a grasper towards the neck of the gallbladder. This was used to retract the gallbladder laterally. I proceeded to define the inferior wall of the gallbladder with blunt dissection using the [place] dissector. By doing so was able to visualize the cystic artery. This blood a little bit during the dissection so I had to apply clips onto this and this was transected between clips with Endo scissors We at this point had achieve a critical view of the hepatocystic triangle. There was note of chronic fibrotic tissue in the area of the hilum and went to do careful dissection carefully separate this from the rest of the inferior margin of the gallbladder wall. Eventually, I was as able to carefully define the planes of the neck of the gallbladder was the cystic duct. With this confirmed along with the hepatocystic triangle being defined, I applied clips on the cystic duct with 2 clips being applied distally. The cystic duct was transected between clips with Endo scissors. With traction on the gallbladder away from the liver bed I proceeded to divide through the hilum with the hook electrocautery, carefully avoiding fibrous adhesions cook to separate the gallbladder wall from the liver bed. I proceeded to define a plane of dissection between the gallbladder wall and the liver bed using a combination of blunt dissection as well as the cautery. I the gallbladder from the liver bed along this plane. There was note of fibrotic changes consistent with chronic cholecystitis. Eventually as able to completely separate the gallbladder and the liver bed and this was retrieved through an endobag through the epigastric port I reinserted all ports and insufflated. I examined the bowel loop that had been adjacent to the gallbladder earlier and this did not have any obvious injury. I used the right lateral port site examined the bowel loops underneath the umbilicus. These did not appear to have an injury either. There was no enteric fluid seen in the area I proceeded to then examined the subhepatic space. There was note of a little bit of oozing from the liver bed and I applied Surgicel to achieve hemostasis. I observed this for about 2 minutes. Once hemostasis was confirmed, I proceeded to then desufflated the port sites. Removed all ports under vision with the laparoscope I then retracted the fascia of the umbilical incision with S retractors. I was able to visualize the very adherent bowel loops underneath this and this appeared to be tacked to the any injury I therefore closed the fascia of the umbilical incision carefully with a [id number] Polysorb 0 stitch. I also closed the fascia of the epigastric port with a [id number] Polysorb 0 stitch Skin incisions were closed with Polysorb 4-0 subcuticular running sutures. All incisions were infiltrated with Marcaine 0.5% for postop analgesia Dressings were applied. The procedure was completed The patient tolerated procedure well. There were no immediate complications. Initial and final counts of sponges and instruments were correct. Estimated blood loss was about 75 cc The patient was extubated without difficulty and transferred to the recovery room with stable vital signs.
[2024-02-22] MEDS: Acetaminophen 1,000 MG/100 ML PIGGYBACK 400 MG IV (13:44)
[2024-02-22] MEDS: 0.9 % Sodium Chloride Flush 3 ML SYRINGE IVFLUSH (14:46)
--- NOTE | 2024-02-22 15:28 | MHC.CM.PN ---
CM MET WITH PT AT BEDSIDE. IRAQI SPEAKING, NO NEED FOR BUSINESS SOLUTIONS DIRECTOR. PT LIVES ALONE, INDEPENDENT AND EMPLOYED. NO HCP, DECLINES TO COMPLETE ONE AT THIS TIME. PCP JOANN DIAS, UNSURE OF PROVIDERS NAME. DP: HOME, NO SERVICES ANTICIPATED. PT HAS OWN RIDE HOME. CM WILL CONTINUE TO FOLLOW FOR ANY CHANGE TO DC PLAN/NEEDS.
--- NOTE | 2024-02-22 16:09 | PM.EVENT ---
Event Note Date of Service: 02/22/24 Event Note: seen postoo s/p lap felipa - difficult procedure due to adhesions appears comfortable seems to have adequate pain control stable VS looks well pain mgt doing well postop hope to dc home tomorrow Lilian updated Time Spent With Patient Time: Total time managing care of this patient today ____ minutes.
[2024-02-22] MEDS: Morphine Sulfate 4 MG/ML CARTRIDGE IVPUSH ×2 (17:21→21:21)
[2024-02-22] MEDS: oxyCODONE HCl Immed Release 5 MG TABLET PO (20:03)
[2024-02-22] MEDS: Heparin Sodium,Porcine 5,000 UNIT/ML VIAL 5000 UNIT SUBCUT (20:03)
--- NOTE | 2024-02-22 21:00 | PC.NURSE ---
patient unsure if he wanted to take heparin shot at HS, RN educated patient on the use and benefit of the heparin shot. patient accepted.
[2024-02-23 00:13] VITALS: BP 143/80
[2024-02-23 03:38] VITALS: BP 148/74; PULSE 77; RESP 16; TEMP 37.3; O2SAT 92
[2024-02-23] MEDS: Heparin Sodium,Porcine 5,000 UNIT/ML VIAL 5000 UNIT SUBCUT (03:48)
[2024-02-23] MEDS: Morphine Sulfate 4 MG/ML CARTRIDGE IVPUSH ×2 (03:48→12:21)
--- NOTE | 2024-02-23 07:55 | PM.PNGS ---
Subjective Subjective Date of Service: 02/23/24 Interval history: Feels well Denies significant pain Tolerating clear liquids Ambulating Says he has good pain control Physical Exam Vital Signs: Vital Signs: Last Vital Signs Temp 99.1 F 02/23/24 03:38 Pulse 77 02/23/24 03:38 Resp 16 02/23/24 03:38 BP 148/74 H 02/23/24 03:38 Pulse Ox 92 02/23/24 03:38 O2 Del Method Room Air 02/23/24 03:38 O2 Flow Rate 2 02/22/24 14:15 BMI result Body Mass Index 37.3 Const: Other: Looks well General: comfortable and no acute distress Resp: Effort & Inspection: normal respiratory effort Cardio: Rate: regular rate GI: Other: Band-Aids in place Palpation (GI): Soft to palpation, not firm and no guarding Objective Data Active Medications Acetaminophen (Acetaminophen 325 Mg Tablet) 650 mg PO Q6H PRN PRN Reason: Pain, Mild (Pain Scale 1-3), fever or headache Last Admin: 02/22/24 20:02 Dose: 650 mg Documented By: GENEVA Heparin Sodium (Porcine) (Heparin Sodium,Porcine 5,000 Unit/Ml Vial) 5,000 unit SUBCUT Q8H [facility] Last Admin: 02/23/24 03:48 Dose: 5,000 unit Documented By: GENEVA Lactated Ringer's (Lr) 1,000 mls @ 100 mls/hr IVCONT .Q10H [facility] Last Admin: 02/22/24 23:59 Dose: 100 mls/hr Documented By: GENEVA Melatonin (Melatonin 3 Mg Tablet) 6 mg PO BEDTIME PRN PRN Reason: Insomnia Metoclopramide HCl (Metoclopramide Hcl 10 Mg/2 Ml Vial) 10 mg IVPUSH Q6H PRN PRN Reason: Nausea and Vomiting Morphine Sulfate (Morphine Sulfate 4 Mg/Ml Cartridge) 4 mg IVPUSH Q4H PRN; Protocol PRN Reason: Pain, Severe (Pain Scale 7-10) Last Admin: 02/23/24 03:48 Dose: 4 mg Documented By: GENEVA Ondansetron HCl (Ondansetron Hcl 4 Mg/2 Ml Vial) 4 mg IVPUSH Q6H PRN PRN Reason: nausea Last Admin: 02/21/24 16:43 Dose: 4 mg Documented By: SAMUEL Oxycodone HCl (Oxycodone Hcl Immed Release 5 Mg Tablet) 5 mg PO Q4H PRN PRN Reason: Pain, Moderate(Pain Scale 4-6) Last Admin: 02/22/24 20:03 Dose: 5 mg Documented By: GENEVA Pantoprazole Sodium (Pantoprazole Sodium 40 Mg/10 Ml Vial) 40 mg IVPUSH DAILY [facility] Last Admin: 02/22/24 08:09 Dose: 40 mg Documented By: ROMANA Sodium Chloride (0.9 % Sodium Chloride Flush 3 Ml Syringe) 3 ml IVFLUSH QSHIFT [facility] Last Admin: 02/22/24 23:13 Dose: Not Given Documented By: GENEVA Non-Admin Reason: IV Running Labs 02/22/24 07:06 02/22/24 07:06 Labs: Laboratory Results - last 24 hr 02/22/24 07:06 Antibody Screen NEGATIVE Microbiology Microbiology Results: Microbiology 02/21/24 22:45 Urine Culture - Preliminary Urine clean catch - Clean Catch Midstream Culture too young to evaluate. Procedures Date of Service Date of Service: 02/23/24 Progress Note: A&P Assessment and plan (1) Biliary colic: Status: Acute Assessment and Plan: Status post laparoscopic cholecystectomy Looks well Advance diet Abdomen soft and benign If tolerating diet, okay to DC Discharge instructions reinforced with patient at bedside Time Spent With Patient Time: Total time managing care of this patient today ____ minutes. Quality Stroke Does the patient have a stroke diagnosis?: No VTE Prior VTE?: No VTE Risk Level:: Medical - moderate - high VTE Device Contraindication: N/A - Device Ordered VTE Drug Contraindication: N/A - Med Ordered
[2024-02-23 08:00] VITALS: BP 159/85; PULSE 75; RESP 16; TEMP 36.7; O2SAT 93
[2024-02-23] MEDS: Pantoprazole Sodium 40 MG/10 ML VIAL IVPUSH (08:25)
[2024-02-23] MEDS: oxyCODONE HCl Immed Release 5 MG TABLET PO (08:35)
[2024-02-23] MEDS: Acetaminophen 325 MG TABLET 650 MG PO (08:36)
--- NOTE | 2024-02-23 10:09 | HO.POSTANES ---
Post Anesthesia Evaluation Post Anesthesia Evaluation Date of Service: 02/22/24 Vital Signs: Vital Signs Temp Pulse Resp BP Pulse Ox O2 Del Method 02/23/24 08:00 98.0 F 75 16 159/85 H 93 Room Air 02/23/24 03:38 99.1 F 77 16 148/74 H 92 Room Air 02/23/24 00:13 143/80 H Anesthesia: General Mental Status: Awake Pain Control: Satisfactory Nausea/Vomiting: None Hydration: Adequate Anesthesia-Related Issues: No Anes. Related Issues
--- NOTE | 2024-02-23 12:09 | MHC.CM.PN ---
Patient medically cleared for dc home self care. Family at bedside to transport. RN aware.
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
== END 2024-02-23 13:05 | disposition home or self-care (01) | DRG 263 ==
LOC: HO.ED 08:38 → HO.EDOVER 10:52 → HO.S3 19:56
PROVIDERS: Admitting Provider Surgery; Emergency Provider Emergency Medicine Emergency Medical Services; Visit Provider Surgery
PROC: 0FT44ZZ Resection of Gallbladder, Percutaneous Endoscopic Approach (ICD-10-PCS; CPT 47562; principal; 2024-02-22 11:10)
DX: K80.12 Calculus of gallbladder with acute and chronic cholecystitis without obstruction (principal); F17.210 Nicotine dependence, cigarettes, uncomplicated; K82.8 Other specified diseases of gallbladder; Z71.6 Tobacco abuse counseling; Z88.0 Allergy status to penicillin; Z79.899 Other long term (current) drug therapy
CPT/HCPCS: 47562; 36415; 71045; 74181; 76705; 80053; 81001; 83690; 85025; 85027; 85610; 85730; 86850; 86900; 86901; 87086; 87147; 88304; 99221; 99285; J0131; J1170; J1200; J1644; J1885; J2270; J2405; J2470; J2704; J2765; J2795; J3010; J7120

== ENCOUNTER → 2024-02-21 08:00 | Outpatient (BNV) | payer OTHER, SELFPAY | PROVIDERS: Admitting Provider Surgery; Emergency Provider Emergency Medicine Emergency Medical Services; Visit Provider Surgery | DX: K80.10 Calculus of gallbladder with chronic cholecystitis without obstruction (principal) | CPT/HCPCS: 47562; 99024; 99222; 99499 ==

== ENCOUNTER 2024-03-08 14:32 | Outpatient (AMB) | payer OTHER, SELFPAY ==
--- NOTE | 2024-03-08 14:42 | MHC.OFFVIS ---
Intake Visit Reasons: Laparoscopic cholecystectomy Intake Note: This patient presents for post-op assessment status post Laparoscopic cholecystectomy, with extra port placement on the left paraumbilical area. Pt c/o; reports no complaints. Reverse Unit Operator Required: No Accompanied by: Other Relationship Allergies Penicillins [PENICILLINS] Allergy (Unknown, Verified 03/08/24 14:42) SWELLING AND ITCHING HPI HPI Laparoscopic cholecystectomy: Details: 48-year-old male here for postop visit. He underwent laparoscopic cholecystectomy last 02/22/2024 for acute cholecystitis. He tolerated procedure well. He was discharged on postop day 1. He did have significant adherent small bowel loops surrounding the umbilicus so we had to place 1 of the port sites away from this. He seems to be doing well. Denies any significant GI complaints. He has good oral intake. [facility] Medical History (Updated 03/08/24 @ 15:08 by Raleigh Suresh MD) Gallstones History of retained foreign body fully removed (~1989) Pancreatic mass Surgical History History of laparoscopic cholecystectomy (~02/22/24) History of exploratory laparotomy Family History Other Family history unknown Social History Household Members: None Housing: Apartment Do you presently have visiting nurse or other home services: No Patient Tobacco Use Status: Current everyday Tobacco user Tobacco use type: Cigarette Cigarette Packs Per Day: 1 Cigarettes Per Day: 20.0 e-Cigarette/Vaping Use: Currently Using service: No Review of Systems Const Denies chills and Denies fever(s) Card Denies chest pain, Denies dyspnea and Denies dyspnea on exertion Resp Denies cough, Denies dyspnea and Denies dyspnea on exertion GI Denies hematochezia and Denies change in bowel habits Denies hematuria and Denies difficulty urinating Musc Denies back pain and Denies limited range of motion Neuro Denies focal weakness and Denies convulsions Psych Denies depression and Denies mood swings Physical Exam Const General: comfortable and no acute distress Eyes Other: Anicteric GI Other: All incisions are well healed, not infected Assessment & Plan Assessment & Plan (1) Gallstones: Code(s): K80.20 - Calculus of gallbladder without cholecystitis without obstruction Category: Medical Plan Status post laparoscopic cholecystectomy. All incisions are well healed. His path report shows chronic cholecystitis. His MRI did not show any pancreatic mass . He was advised to avoid lifting 20 lb short 2 more weeks. He can follow up on a p.r.n. basis. Coding Level of Care Code Global (19116) Diagnoses Gallstones K80.20
== END 2024-03-08 15:24 | disposition home or self-care (01) ==
PROVIDERS: Visit Provider Surgery
DX: K80.20 Calculus of gallbladder without cholecystitis without obstruction (principal)
CPT/HCPCS: 99024

== ENCOUNTER → 2024-03-08 14:32 | Outpatient (BNVA) | payer OTHER, SELFPAY | PROVIDERS: Visit Provider Surgery | DX: Z48.815 Encounter for surgical aftercare following surgery on the digestive system (principal); Z90.49 Acquired absence of other specified parts of digestive tract | CPT/HCPCS: 99212 ==

== ENCOUNTER 2024-11-29 10:49 | Emergency (ER) | payer SELFPAY ==
--- NOTE | ~2024-11-29 | CT_ITS ---
EXAMINATION: CT SOFT TISSUE NECK WITH CONTRAST CLINICAL INFORMATION: Swelling/tenderness. Concerning chin abscess. COMPARISON: None available. TECHNIQUE: Following the intravenous administration of 75 mL of Omnipaque 350 intravenous contrast, helical imaging was performed in the axial plane with generation of coronal and sagittal reformatted images. This CT examination was performed using dose optimization techniques as appropriate, variously including the following: *Automated exposure control *Adjustment of mA and/or kV according to patient size (this includes techniques or standardized protocols for targeted exams where dose is matched to indication/reason for exam; i.e. extremities or head) *Use of iterative reconstruction technique DLP: 969 mGy centimeter. FINDINGS: There is skin thickening and edema pattern in the midline and right midline mandibular soft tissues without a peripheral enhancing fluid collection. There is a subtle periapical hypodensity in the right mandibular first premolar. There is periapical hypodensities in the second molars, maxillary and to a lesser extent mandible. There is a periapical hypodensity in the left first premolar of the mandible. No peripheral enhancing fluid collections in the oral cavity nor the lingual margin of the mandible. No peripheral enhancing fluid collection in the submandibular compartment.. Skull base, nasopharynx, retropharynx, hypopharynx and larynx demonstrated no gross mass or fluid collections. The machine maintenance repairer spaces demonstrated no masses or fluid collections. Salivary glands demonstrated no enhancing lesion or calcifications. Prominent, nonspecific submandibular, sublingual and suprahyoid carotid compartments. Secretions within the vallecula. Mild prominent lingual tonsils. The vessels are patent. Dominant right internal jugular vein. The thyroid gland demonstrates normal morphology without dominant nodule. No mass or fluid collections in the intraconal or extraconal compartments of the orbits. Cervical spondylosis C5-6 and to a lesser extent C4-5 and C6 levels with a reverse curvature apex at C5. No air-fluid levels in the paranasal sinuses. Tympanic cavities and mastoid cells are aerated. CT/CT soft tissue neck w IV con IMPRESSION: Edema pattern/phlegmon and has associated skin thickening soft tissues of the mandible without drainable fluid collection. Prominent likely reactive cervical lymph nodes. Probable multiple periapical abscesses, maxillary and mandibular. Electronically signed by: Tray Schwab MD 11/29/2024 01:45 PM EDT
[2024-11-29 11:24] VITALS: BP 153/99; PULSE 99; RESP 18; TEMP 36.8; O2SAT 99; BMI 36.6
--- NOTE | 2024-11-29 11:24 | ED_ITS ---
HPI - Skin/Abscess/Foreign Bdy General Chief complaint: Skin/Abscess/Foreign Body Stated complaint: ? Abscess on Chin Time Seen by Provider: 11/29/24 11:54 Source: patient Mode of arrival: ambulatory Limitations: no limitations History of Present Illness ED Provider: Jade Carroll PA-C HPI narrative: Patient is a 48 year old assigned male at with a history of a pancreatic mass presenting to the emergency department today with chin pain / swelling. Patient states that a few days ago he noticed swelling in his chin, shaved his haley, and attempted to pop the area without success. Patient states that it is draining some clear fluid. Patient denies any dizziness, lightheadedness, abdominal pain, nausea, vomiting, fever, chills, blurry vision, double vision, loss of vision, chest pain, difficulty breathing, shortness of breath, back pain, night sweats, pain with urination, increased urinary frequency, increased urinary urgency, blood in his urine or stool, syncope or a near syncopal episode, recent trauma or falls, bowel incontinence, bladder incontinence, or any other complaints at this time. Related Data Home Medications ?Medication ?Instructions ?Recorded ?Confirmed acetaminophen 500 mg tablet 500 mg PO DAILY PRN Pain 02/21/24 02/21/24 (Tylenol Extra Strength) multivitamin 1 tab PO DAILY 02/21/24 02/21/24 Previous Rx's ?Medication ?Instructions ?Recorded ibuprofen 600 mg tablet 600 mg PO Q6H PRN pain #30 tabs 02/23/24 oxycodone-acetaminophen 5 mg-325 1 tab PO Q4-6H PRN pain #25 tabs 02/23/24 mg tablet (Percocet) doxycycline hyclate 100 mg tablet 100 mg PO BID 7 days #14 tabs 11/29/24 Allergies Allergy/AdvReac Type Severity Reaction Status Date / Time Penicillins [PENICILLINS] Allergy Unknown SWELLING Verified 11/29/24 11:26 AND ITCHING Review of Systems 2 Constitutional: Constitutional: Reports no additional constitutional complaints, Denies chills, Denies fever(s) and Denies night sweats Eyes: Eyes: Reports no additional eye complaints, Denies blurry vision, Denies change in vision, Denies diplopia, Denies eye discharge, Denies loss of vision and Denies eye pain ENT: Denies dizziness Comments: chin swelling - pain Cardiovascular: Cardiovascular: Reports no additional cardiovascular complaints, Denies chest pain, Denies lightheadedness, Denies Loss of Consciousness and Denies dyspnea Respiratory: Respiratory: Reports no additional respiratory complaints and Denies dyspnea Gastrointestinal: Gastrointestinal: Reports no additional gastrointestinal complaints, Denies abdominal pain, Denies melena, Denies hematochezia, Denies change in bowel habits and Denies change in stool character Genitourinary: Genitourinary: Reports no additional male genitourinary complaints, Denies hematuria, Denies oliguria, Denies difficulty urinating, Denies dysuria, Denies urinary frequency, Denies urinary hesitancy, Denies urinary incontinence and Denies urinary urgency Musculoskeletal: Musculoskeletal: Reports no additional musculoskeletal complaints, Denies numbness and Denies tingling Neurologic: Denies dizziness, Denies loss of vision, Denies numbness and Denies tingling Psychiatric: Psychiatric: Reports no additional psychiatric complaints Endocrine: Endocrine: Reports no additional endocrine complaints Hematologic/Lymphatic: Hematologic/Lymphatic: Reports no additional hematologic/lymphatic complaints Allergic/Immunologic: Allergic/Immunologic: Reports no additional allergic/immunologic complaints [facility] Past Medical History Attestation statement: The following information was validated with the patient. Source: old records reviewed and nursing notes reviewed Medical History Gallstones History of retained foreign body fully removed (~1989) Pancreatic mass Surgical History History of laparoscopic cholecystectomy (~02/22/24) History of exploratory laparotomy Family History Family History Other Family history unknown Social History Social History Household Members: None Housing: Apartment Do you presently have visiting nurse or other home services: No Unable to assess alcohol history related to: Unknown Patient Tobacco Use Status: Current everyday Tobacco user Tobacco use type: Cigarette Cigarette Packs Per Day: 1 Cigarettes Per Day: 20.0 e-Cigarette/Vaping Use: Currently Using Use of substances other than those prescribed or required for medical reasons: Unknown Advance Directives: No Advance Directives Information Provided: Yes service: No Physical Exam 2 Vital Signs: Vital Signs: Last Vital Signs Temp 98.2 F 11/29/24 11:24 Pulse 75 11/29/24 13:44 Resp 16 11/29/24 13:44 BP 148/76 H 11/29/24 13:44 Pulse Ox 95 11/29/24 13:44 O2 Del Method Room Air 11/29/24 13:44 BMI result Body Mass Index 36.6 Const: General: cooperative, no acute distress, alert and awake Nutritional Appearance: well nourished Orientation/consciousness: patient oriented x3 HEENT: Other: Head: Yes normal to inspection and Yes atraumatic Ears: hearing grossly normal bilaterally and external ears normal General nose exam: Normal external nose present, no nasal discharge noted and no epistaxis Face and sinus: No abrasion and No laceration Mouth: Normal oral and palatal mucosa present, no drooling and no muffled voice Eyes: General: appearance normal, both eyes and all related structures P eriorbital: periorbital findings normal Eyelids: Yes eyelids normal C onjunctivae: conjunctivae normal Pupils: Equal, round and reactive pupils present EOM: EOMs intact bilaterally Neck: Neck: Yes normal visual inspection, Yes full ROM and Yes no lymphadenopathy Resp: Effort & Inspection: normal respiratory effort and able to speak in complete sentences Neuro: General: patient oriented x3, moves all extremities and CN's II-XI intact bilaterally Cranial nerves: Yes Equal, round and reactive pupils present Cognition (Neuro): normal cognition Extrem: General: Yes normal to inspection, Yes full ROM and Yes capillary refill normal Psych: Appearance: grossly normal Mental Status: mental status grossly normal Affect: normal affect Attitude: cooperative Thought process: N ormal thought process present Thought content: Normal thought content present Insight: Good insight present (Psych) Course Course Course Narrative: This is a Rapid Medical Exam performed in triage by rBenda Phillips PA-C. Full HPI, ROS and PE to be performed by primary ED provider. 48 yo M w/no sig PMHx presenting to the ED c/o painful draining abscess/infection noted to right-side of chin extending to neck. Reports painful swallowing. Denies difficulty or inability to swallow, fever. Reports watery drainage from area. Tried to self drain at home PE: + erythematous crusted over area noted to right side of chin with swelling extending to submental area. +ttp to submental region w/o fluctuance or induration, Uvula midline. No respiratory distress. Talking in complete sentences Plan: labs, CT Medications Administered Discontinued Medications Generic Name Dose Route Start Last Admin Trade Name Ethan PRN Reason Stop Dose Admin Ibuprofen 800 mg 11/29/24 11:27 11/29/24 11:31 Ibuprofen 800 Mg Tablet PO 11/29/24 11:28 800 mg ONCE ONE Administration Iohexol 100 ml 11/29/24 13:29 11/29/24 13:29 Iohexol 350 Mg/Ml 100 Ml Infus..Btl IV 11/29/24 13:30 75 ml ONCE ONE Administration Medical Decision Making Medical Decision Making MDM Narrative: Patient is a 48 year old assigned male at with a history of a pancreatic mass presenting to the emergency department today with chin pain / swelling. Patient's physical exam was as noted in the physical exam portion of this note. Patient's blood work showed a mildly elevated CRP with a normal WBC count and ESR. Patient's CT soft tissue neck showed edema pattern/phlegmon and has associated skin thickening soft tissues of the mandible without drainable fluid collection. I spoke with Dr. Ferrell the general surgeon electronics department manager who recommended having the patient follow up on an outpatient basis and covering with PO ABX. I explained my physical exam findings as well as all test results to the patient. I answered all questions asked by the patient. I stressed the importance of the patient taking his medication as directed (either prescribed or as the over the counter packaging recommends). I stressed the importance of the patient following up with his primary care provider and general surgeon. I stressed the importance of the patient returning to the emergency department immediately if his symptoms were to worsen or if he were to develop any dizziness, shortness of breath, difficulty breathing, chest pain, blurry vision, loss of vision, nausea, vomiting, abdominal pain, fever, chills, back pain, or any other complaints. Patient verbalized agreement and understanding with this treatment plan and discharge. Differential Diagnosis Differential Diagnoses: The differential diagnosis associated with the presentation includes Facial cellulitis Chin cellulitis Foliculitis Abscess Admission/Observation Consideration of admission/observation: Escalation of care including admission/observation considered Patient would have been admitted to the hospital had his work up had any findings where hospital admission was appropriate and his clinical presentation warranted hospital admission. Consult Healthcare Provider Management of the patient was discussed with: Director Auto (spoke with Dr. Ferrell as noted in the MDM Rationale portion of this note. ) Lab Data [facility] Lab Attestation statement: I reviewed the patient's lab results. My interpretation of these results are in the MDM Rationale portion of this note. 11/29/24 11:56 11/29/24 11:56 Labs: Lab Results 11/29/24 Range/Units 11:56 WBC 9.4 (4.8-10.8) X10*3/uL RBC 4.97 (4.60-5.80) X10*6/uL Hgb 14.7 (14.0-18.0) g/dl Hct 40.4 L (42.0-52.0) % MCV 81.3 (80.0-98.0) fL MCH 29.6 (27.0-33.0) pg MCHC 36.4 H (31.0-36.0) g/dl RDW 12.9 (11.0-16.0) % Plt Count 345 (160-400) X10*3/uL MPV Not Reportable Immature Gran % (Auto) 0.3 (0.0-0.4) % Neut % (Auto) 72.6 (45-73) % Lymph % (Auto) 19.4 L (20-40) % [place] % (Auto) 6.0 (2-11) % Eos % (Auto) 1.3 (0-4) % Baso % (Auto) 0.4 (0-2) % Lymph # (Auto) 1.8 (1.2-4.9) X10*3/uL [place] # (Auto) 0.6 (0.1-1.2) X10*3/uL Eos # (Auto) 0.1 (0.0-0.4) X10*3/uL Baso # (Auto) 0.0 (0.0-0.2) X10*3/uL Abs Immat Gran (auto) 0.03 (0.00-0.03) X10*3/uL Absolute Neuts (auto) 6.9 (2.0-8.3) x10*3/uL Absolute Nucleated RBC 0.000 (0.0-0.012) X10*3/uL Nucleated RBC % (auto) 0.0 (0.0-0.2) /100WBC ESR 14 (0-15) MM/HR Sodium 142 (135-145) mmol/L Potassium 4.2 (3.3-5.1) mmol/L Chloride 107 (96-108) mmol/L Carbon Dioxide 25 (22-29) mmol/L Anion Gap 14 (12-20) BUN 13 (9-16) mg/dL Creatinine 0.85 (0.5-1.4) mg/dL Estim Creat Clear Calc 145.2 Estimated GFR > 60 Random Glucose 102 (60-115) mg/dL Calcium 9.4 (8.4-10.2) mg/dL C-Reactive Protein 1.43 H (< or = 0.50) mg/dL Independent Interpretation I performed an independent interpretation of an: CT Scan Interpretation: My interpretation is in agreement with the radiologist's impression of this imaging study. L Report Number: [id number]: Total DLP = 969.00 mGy-cm EXAMINATION: CT SOFT TISSUE NECK WITH CONTRAST CLINICAL INFORMATION: Swelling/tenderness. Concerning chin abscess. COMPARISON: None available. TECHNIQUE: Following the intravenous administration of 75 mL of Omnipaque 350 intravenous contrast, helical imaging was performed in the axial plane with generation of coronal and sagittal reformatted images. This CT examination was performed using dose optimization techniques as appropriate, variously including the following: *Automated exposure control *Adjustment of mA and/or kV according to patient size (this includes techniques or standardized protocols for targeted exams where dose is matched to indication/reason for exam; i.e. extremities or head) *Use of iterative reconstruction technique DLP: 969 mGy centimeter. FINDINGS: There is skin thickening and edema pattern in the midline and right midline mandibular soft tissues without a peripheral enhancing fluid collection. There is a subtle periapical hypodensity in the right mandibular first premolar. There is periapical hypodensities in the second molars, maxillary and to a lesser extent mandible. There is a periapical hypodensity in the left first premolar of the mandible. No peripheral enhancing fluid collections in the oral cavity nor the lingual margin of the mandible. No peripheral enhancing fluid collection in the submandibular compartment. Skull base, nasopharynx, retropharynx, hypopharynx and larynx demonstrated no gross mass or fluid collections. The manager content spaces demonstrated no masses or fluid collections. Salivary glands demonstrated no enhancing lesion or calcifications. Prominent, nonspecific submandibular, sublingual and suprahyoid carotid compartments. Secretions within the vallecula. Mild prominent lingual tonsils. The vessels are patent. Dominant right internal jugular vein. The thyroid gland demonstrates normal morphology without dominant nodule. No mass or fluid collections in the intraconal or extraconal compartments of the orbits. Cervical spondylosis C5-6 and to a lesser extent C4-5 and C6 levels with a reverse curvature apex at C5. No air-fluid levels in the paranasal sinuses. Tympanic cavities and mastoid cells are aerated. CT/CT soft tissue neck w IV con IMPRESSION: Edema pattern/phlegmon and has associated skin thickening soft tissues of the mandible without drainable fluid collection. Prominent likely reactive cervical lymph nodes. Probable multiple periapical abscesses, maxillary and mandibular. Electronically signed by: Tray Schwab MD 11/29/2024 01:45 PM EDT RP Dictated By: Tray Reid MD Signed By: Electronically signed by Tray Ramsey MD 11/29/24 1345 Radiology Impression Discussion of test interpretation with radiology: I have reviewed the radiologist's reading. Prescription Management I considered prescription management with: Antibiotic (patient prescribed an antibiotic for chin cellulitis as noted in the MDM Rationale portion of this note. ) Critical Care Time Critical Care Time Critical Care Time: Yes Total Critical Care Time: 36 Attestation: I spent 36 minutes of Critical Care Time with this patient. This does not include time spent on separately reported billable procedures. Discharge Plan Discharge Clinical Impression: Cellulitis Patient Disposition: Home, Self-Care Instructions: Cellulitis (ED) Additional Instructions: Take your antibiotics as prescribed. Sleep sitting up right to avoid additional swelling. Follow up with your primary care provider and a general surgeon. Return to the emergency department immediately if your symptoms worsen or if you develop any numbness, tingling, dizziness, shortness of breath, difficulty breathing, chest pain, blurry vision, loss of vision, nausea, vomiting, abdominal pain, fever, chills, back pain, or any other complaints. [place] los antibi?ticos galo y pavan le prakash recetado. Duerma sharlene sentado para evitar m?s hinchaz?n. Seamus un seguimiento con alvarado m?dico de cabecera y un cirujano general. Acuda inmediatamente a urgencias si delphine s?ntomas empeoran o si presenta entumecimiento, hormigueo, mareos, falta de aliento, dificultad para respirar, dolor tor?cico, visi?n borrosa, p?rdida de visi?n, n?useas, v?mitos, dolor abdominal, fiebre, escalofr?os, dolor de espalda o cualquier otra molestia. Please see the information below about our Patient Portal. If you are not yet enrolled in the [facility] Patient Portal, you will receive an enrollment email invitation following your visit to any [facility] setting. You may also self-enroll in the Patient Portal by visiting our website: [email or web address] The following information is required to access the Patient Portal: - Your [facility] Medical Record Number - Your personal home email address (must match what is in your electronic medical record, Registration staff can assist with this) - Name - Date of Capabilities of the Patient Portal: - Message some providers - View upcoming appointments - Access your health summary, medical history, and visit history - View current conditions and allergies - View procedure and lab results - View your medications, including guidelines, side effects, and precautions - Complete pre-appointment questionnaires requested by your provider - Ready summary reports of your office visits and procedures To access the Patient Portal Mobile Guille, follow these directions: - Search idemama in the Guille Store or [email or web address] Store - Download the Guille - Search for [facility] - Enter your login/password Portal del paciente Si usted no esta inscrito en el portal de pacientes de [facility], recibira roxy invitacion de inscripcion despues de alvarado visita al [facility] o al [facility] via correo electronico. Tambien puede inscribirse voluntariamente en el portal de pacientes visitando nuestra pagina web: [email or web address] La siguiente informacion sera requerida para acceder al portal: - Alvarado priti de historia medica de [facility] - Alvarado direccion de correo electronico personal - Nombre - Fecha de nacimiento Capacidades: Las siguientes capacidades estan disponibles en el portal de pacientes: - Enviar mensajes a algunos doctores - Verificar proximas citas - Acceso a alvarado historial de justo, registro medico e historial de visitas - Mariya las condiciones actuales y alergias mariya procedimientos y resultados del laboratorio - Mariya delphine medicamentos, incluyendo las pautas - Efectos secundarios y precauciones - Completar o llenar formularios / cuestionarios de - Citas solicitadas por alvarado doctor - Leer los resumenes de reportes medicos de delphine visitas y procedimientos [place] acceder a la aplicacion movil: - Laura [employer] en la Gu[employer] Store o [email or web address] Store - Descargue la aplicacion - [facility] - Ingrese alvarado nombre de usuario / Contrasena Prescriptions: New doxycycline hyclate 100 mg tablet 100 mg PO BID 7 Days Qty: 14 0RF No Action multivitamin Tablet 1 tab PO DAILY acetaminophen [Tylenol Extra Strength] 500 mg tablet 500 mg PO DAILY PRN (Reason: Pain) oxycodone-acetaminophen [Percocet] 5-325 mg tablet 1 tab PO Q4-6H PRN (Reason: pain) Qty: 25 0RF Rx Instructions: Partial Fill upon patient request. ibuprofen 600 mg tablet 600 mg PO Q6H PRN (Reason: pain) Qty: 30 0RF Referrals: [facility] General Surgeons [Provider Group] (Call to establish and follow up with a general surgeon. ) [facility] Family Medicine [Provider Group] (Call to establish and follow up with a primary care provider. If you already have a primary care provider, please follow up with them.) [facility] Primary Care, Briana [Provider Group] (Call to establish and follow up with a primary care provider. If you already have a primary care provider, please follow up with them.) [facility] Primary Care, Robson [Provider Group] (Call to establish and follow up with a primary care provider. If you already have a primary care provider, please follow up with them.) [facility] Primary Care, XIMENA [Provider Group] (Call to establish and follow up with a primary care provider. If you already have a primary care provider, please follow up with them.) [facility] Primary Care, Isrela Sidhu [Provider Group] (Call to establish and follow up with a primary care provider. If you already have a primary care provider, please follow up with them.) Stand Alone Forms: Work/School Release Print Language: Bol[place]
[2024-11-29] MEDS: Ibuprofen 800 MG TABLET PO (11:31)
[2024-11-29 12:05] LABS: MANUAL DIFF FLAG NO
[2024-11-29 12:18] LABS: Anion Gap 14 (12-20); Blood Urea Nitrogen 13 mg/dL (9-16); C Reactive Protein 1.43 mg/dL (< or = 0.50); Calcium 9.4 mg/dL (8.4-10.2); Carbon Dioxide 25 mmol/L (22-29); Chloride 107 mmol/L (96-108); Creatinine Clr Calc Pharmacy 145.2; Estimated Glomerular Filt Rate > 60; Glucose Random 102 mg/dL (60-115); Potassium 4.2 mmol/L (3.3-5.1); Sodium 142 mmol/L (135-145)
[2024-11-29 12:26] LABS: Basophils Percent Auto 0.4 % (0-2); Eosinophils Absolute Auto 0.1 X10*3/uL (0.0-0.4); Eosinophils Percent Auto 1.3 % (0-4); Hematocrit 40.4 % (42.0-52.0); Hemoglobin 14.7 g/dl (14.0-18.0); Imm Gran Abs Auto 0.03 X10*3/uL (0.00-0.03); Imm Gran Pct Auto 0.3 % (0.0-0.4); Lymphocytes Absolute Auto 1.8 X10*3/uL (1.2-4.9); Lymphocytes Percent Auto 19.4 % (20-40); Mean Corpuscular HGB Conc 36.4 g/dl (31.0-36.0); Mean Corpuscular Hemoglobin 29.6 pg (27.0-33.0); Mean Corpuscular Volume 81.3 fL (80.0-98.0); Monocytes Absolute Auto 0.6 X10*3/uL (0.1-1.2); Neutrophils Absolute Auto 6.9 x10*3/uL (2.0-8.3); Neutrophils Percent Auto 72.6 % (45-73); PLT CLUMP 1; Red Blood Count 4.97 X10*6/uL (4.60-5.80); Red Cell Distribution Width 12.9 % (11.0-16.0); SCAN SMEAR FLAG 1
[2024-11-29 12:31] LABS: White Blood Count 9.4 X10*3/uL (4.8-10.8)
[2024-11-29 12:45] LABS: Platelet Count 345 X10*3/uL (160-400)
[2024-11-29 12:54] LABS: Erythrocyte Sedimentation Rate 14 MM/HR (0-15)
[2024-11-29] MEDS: iohexoL 350 MG/ML 100 ML INFUS..BTL IV (13:29)
[2024-11-29 13:44] VITALS: BP 148/76; PULSE 75; RESP 16; O2SAT 95
--- NOTE | 2024-11-29 14:58 | P.CONGS_ITS ---
History of Present Illness Consult details Consult date: 11/29/24 Narrative: 48-year-old male patient presenting for evaluation of swelling and pain located in the chin. This began several days ago and was noted below his haley. He reports shaving his haley in an attempt to pop an infection without success. Also reports swelling extending down his neck. He denies any fever or chills, shortness of breath or other associated symptoms. He did note some swelling in the left eye which he thought may have been due to environmental allergies. He presented to the emergency department due to the pain and was noted to have a normal WBC but an elevated CRP. A CT of the neck soft tissue was performed and revealed edema/phlegmon with the associated skin thickening of the soft tissues of the mandible without any drainable fluid collection noted. A prominent, likely reactive cervical lymph node was noted. Surgical consultation was requested regarding the need for possible incision and drainage. He denies any previous infections in this location. Review of Systems 2 Review of Systems: Yes all other systems are reviewed and are negative PMFSH Past Medical History Medical History Gallstones History of retained foreign body fully removed (~1989) Pancreatic mass Family History Family History Other Family history unknown Surgical History Surgical History History of laparoscopic cholecystectomy (~02/22/24) History of exploratory laparotomy Social History Social History Household Members: None Housing: Apartment Do you presently have visiting nurse or other home services: No Unable to assess alcohol history related to: Unknown Patient Tobacco Use Status: Current everyday Tobacco user Tobacco use type: Cigarette Cigarette Packs Per Day: 1 Cigarettes Per Day: 20.0 e-Cigarette/Vaping Use: Currently Using Use of substances other than those prescribed or required for medical reasons: Unknown Advance Directives: No Advance Directives Information Provided: Yes service: No Meds Allergies Allergy/AdvReac Type Severity Reaction Status Date / Time Penicillins [PENICILLINS] Allergy Unknown SWELLING Verified 11/29/24 11:26 AND ITCHING Home Medications ?Medication ?Instructions ?Recorded ?Confirmed ?Last Taken ?Type acetaminophen 500 mg tablet 500 mg PO DAILY PRN Pain 02/21/24 02/21/24 Unknown History (Tylenol Extra Strength) multivitamin 1 tab PO DAILY 02/21/24 02/21/24 Unknown History Physical Exam 2 Vital Signs: Vital Signs: Last Vital Signs Temp 98.2 F 11/29/24 11:24 Pulse 75 11/29/24 13:44 Resp 16 11/29/24 13:44 BP 148/76 H 11/29/24 13:44 Pulse Ox 95 11/29/24 13:44 O2 Del Method Room Air 11/29/24 13:44 BMI result Body Mass Index 36.6 Const: General: no acute distress Nutritional Appearance: well nourished Orientation/consciousness: patient oriented x3 Limitations: no limitations HEENT: Head: Yes normocephalic and Yes atraumatic Face images: 1. Area of tenderness and swelling without palpable fluctuance. Some swelling noted in the midline neck but without any erythema or tenderness. Resp: Effort & Inspection: normal respiratory effort, no audible wheezes, no cough and no respiratory distress Skin: Other: Erythema in the chin as noted above otherwise normal Neuro: General: patient oriented x3 Extrem: General: Yes no clubbing, cyanosis or edema Results Labs 11/29/24 11:56 11/29/24 11:56 Labs: Abnormal lab results 11/29/24 Range/Units 11:56 Hct 40.4 L (42.0-52.0) % MCHC 36.4 H (31.0-36.0) g/dl Lymph % (Auto) 19.4 L (20-40) % C-Reactive Protein 1.43 H (< or = 0.50) mg/dL Short CBC 11/29/24 Range/Units 11:56 WBC 9.4 (4.8-10.8) X10*3/uL Hgb 14.7 (14.0-18.0) g/dl Hct 40.4 L (42.0-52.0) % Plt Count 345 (160-400) X10*3/uL BMP 11/29/24 11:56 Sodium 142 Potassium 4.2 Chloride 107 Carbon Dioxide 25 BUN 13 Creatinine 0.85 Calcium 9.4 All other labs normal. Imaging Additional studies: CT neck soft tissue Assessment and Plan (1) Cellulitis: Qualifiers: Site of cellulitis: face Qualified Code(s): L03.211 - Cellulitis of face Status: Acute Plan 48-year-old male patient presenting with a probable folliculitis involving the right side of the chin which developed over the past several days. On examination there appears to be mainly phlegmon without an abscess. CT neck soft tissue confirms inflammatory changes without abscess. Recommend starting oral antibiotics with follow-up in the office in approximately 1 week. Also recommend warm compresses to the face over the affected area. He expressed understanding and agrees with the plan. Procedures Date of Service Date of Service: 11/29/24
[2024-11-29 15:12] VITALS: BP 148/76; PULSE 75; RESP 16; TEMP -17.7; TEMP 0; O2SAT 95
== END 2024-11-29 15:12 | disposition home or self-care (01) ==
PROVIDERS: Physician Assistant; Emergency Provider Emergency Medicine
DX: L03.211 Cellulitis of face (principal); R22.0 Localized swelling, mass and lump, head; Z79.899 Other long term (current) drug therapy
CPT/HCPCS: 36415; 70491; 80048; 85025; 85652; 86140; 99284; Q9967

== ENCOUNTER → 2024-11-29 11:27 | Outpatient (BNV) | payer SELFPAY | PROVIDERS: Visit Provider Radiology Diagnostic Radiology | DX: R22.1 Localized swelling, mass and lump, neck (principal) | CPT/HCPCS: 70491 ==

== ENCOUNTER → 2024-11-29 12:08 | Outpatient (BNV) | payer SELFPAY | PROVIDERS: Emergency Provider Emergency Medicine; Visit Provider Surgery | DX: L03.211 Cellulitis of face (principal) | CPT/HCPCS: 99283 ==